=== PATIENT | female | born 1945 | race Caucasian/White ===

== ENCOUNTER 2022-09-13 15:33 | Inpatient (IN) | payer MEDICARE, SELFPAY ==
[2022-08-27 12:21] VITALS: BMI 34.5
--- NOTE | 2022-09-11 23:17 | DI.RAD.S_ITS ---
PROCEDURE: XR KNEE RT 1TO2V INDICATIONS: tka TECHNIQUE: 2 view(s) of the knee acquired. COMPARISON: None. FINDINGS: Bones: Patient is status post knee joint arthroplasty. Hardware components are in expected positions. Visualized bony structures are intact. Soft tissues: Overlying postoperative changes are noted. IMPRESSION: Expected postoperative appearance of a right total knee arthroplasty. Dictated by: Anthony Michaud M.D. on 09/12/2022 at 14:53 Approved by: Anthony Michaud M.D. on 09/12/2022 at 14:53
[2022-09-12] VITALS (21 sets, daily range): BP systolic 121–182; BP diastolic 55–118; PULSE 57–65; RESP 10–20; TEMP 36.5–37.1; O2SAT 90–98; BMI 34.5
[2022-09-12] MEDS: PREGABALIN 75 MG CAPSULE PO (09:49)
[2022-09-12] MEDS: ACETAMINOPHEN 325 MG TABLET 975 MG PO (09:49)
[2022-09-12] MEDS: LACTATED RINGERS 1,000 ML 42 ML IV (09:50)
[2022-09-12] MEDS: CELECOXIB 200 MG CAPSULE PO (09:50)
--- NOTE | 2022-09-12 11:16 | PM.PREOP ---
Pre-operative Note Interval Note History & Physical reviewed/Exam performed by Physician: Yes Changes to H&P: No H&P completed within 30 days and has changed as indicated here:: Patient has a history of a Celestino-en-Y. Will get aspirin for DVT prophylaxis as low risk of bleeding with that then with other options. Will do aspirin 81 mg b.i.d.. We will avoid other anti-inflammatories.
[2022-09-12] MEDS: CEFAZOLIN 2 GM/100 ML PREMIX 100 ML IV ×2 (11:55→20:59)
--- NOTE | 2022-09-12 12:26 | SUR.OPER ---
Supine on padded OR bed. Pillow under head, arms secured on padded armboards <90 degree abduction. Safety belt across torso. Non-operative leg secured with tape over blanket over lower leg. Operative leg secured in DeMayo/Sebastien/Nathe positioner. Foam padded brace at thigh of operative leg.
[2022-09-12] MEDS: BUPIVACAINE LIPOSOME 266 MG/20 ML VIAL INJ ×2 (12:32→14:15)
[2022-09-12] MEDS: BUPIVACAINE 0.25% W/ EPI 30 ML VIAL 60 ML INJ (12:34)
[2022-09-12] MEDS: TRANEXAMIC ACID 1,000 MG VIAL 1000 MG INJ ×2 (12:35→13:57)
--- NOTE | 2022-09-12 14:37 | P.OP_ITS ---
Operative Date/Time/Diagnoses Date of procedure: 09/12/22 Time of procedure: 12:00 Pre-op diagnosis: Right knee arthritis M17.11 BMI 34 Post-op diagnosis: same Procedure & Clinicians Procedure: Total knee arthroplasty, right CPT code 91654 Same procedure as scheduled: Yes Indications: The patient is a 77 year old female with end-stage [id number] knee arthritis. The patient has end-stage, significant varus knee arthritis. They have failed conservative treatment with activity modifications, injections, physical therapy and bracing. They has been indicated for total knee replacement. The risks and benefits of the procedure have been discussed with the patient even opportunity to ask questions. The risks of surgery include but are not limited to infection, malunion, nonunion, fracture, loosening, persistence of pain, damage to nerves and blood vessels, need for additional procedures, DVT, PE, cardiopulmonary complications and . The patient expressed a thorough understanding of the risks and benefits of surgery and has elected to proceed. Consent was signed in the office. During the operation the services of physician surgical elastic knitter were medically indicated and necessary to provide the exposure of the operative site for the surgical procedure and to maintain the limb in a proper position to carry out the procedure safely and efficiently. Without a qualified first assistant manager being present this would extend the operative procedure and would have made the procedure more technically difficult to perform. The surgical elastic knitter was medically necessary for the proper positioning, retraction and manipulation of the limb, proper exposure, and manipulation of the tissue for implantation implants and closure. Surgeon: Aleshia Hargrove Principal Bioinformatics Specialist: Kaya Flynn Anesthesia Type: General and Local Operative Notes Findings: Kellgren Kodi grade 4 varus knee arthritis full-thickness cartilage loss medial and patellofemoral compartments medial and lateral meniscal tearing Closure Type: primary Specimen(s): none sent Prosthetic devices, grafts, tissues, transplants, or devices: Silva and nephew journey 2 BCS total knee arthroplasty Femur cobalt chromium size 4 right Tibia size 3 right Poly 11 mm Patella 35 mm x 7.5, round Estimated Blood Loss (mL): 50 Blood products transfused: none Tourniquet time (min): 90 Procedure in detail: Patient was seen in the preoperative area where the patient and site of surgery were identified in the operative knee was marked informed consent confirmed. This was the right knee. Patient received the appropriate preoperative antibiotics this was 2 g of Ancef. And other preoperative medications and was taken to the operating room placed on operating table in the supine position. general anesthetic was administered. The operative extremity was then prepped and draped in the standard sterile fashion with a nonsterile tourniquet high on the thigh. Patient was placed on the green foam bolsters. A lateral post was placed at the level of the proximal thigh /trochanter area as a lateral post. Formal time-out procedure was performed confirming the patient's side and site of surgery and administration of appropriate preoperative antibiotics and implants were in the room accounted for. All were in agreement. Patient received a preoperative dose of tranexamic acid and then a 2nd dose at tourni quet release Patient was prepped and draped in the standard sterile fashion and the foot was placed into the leg price. This was taken into high flexion and the incision was marked out over the anterior knee to the level of the medial tubercle tubercle. The Esmarch was then used for exsanguination and the tourniquet was inflated to 250 mmHg. Was made through the skin and subcutaneous tissue in high flexion this was then brought down into 30? of flexion for the medial parapatellar arthrotomy. A marker pen was used to west the arthrotomy site for later repair. Joint fluid was evacuated. The anterior osteophytes and soft tissues were removed. Routine medial release was initially made along the medial proximal tibia with Bovie. The patella was on quite a bit of tension on attempted eversion so the quad incision was lengthened to relax it and then the patella was 1st cut using the saw sized and prepped and then subluxed throughout the case and protected. The leg was then taken into extension and the patella was everted and the patella was cut to accommodate the patellar button. This was sized to a 35 mm button for a 7.5 mm thickness to recreate the original dimensions of the patella. Poly was removed and the protector replaced and the patella was subluxed and the knee was taken back up into flexion and attention was returned to the femur. Then the rotational landmarks of Whitesides line and the trans epicondylar axis were marked on the femur with electrocautery. Then the intramedullary guide for the femur was created. The distal femoral cut was made in 6? of valgus using the intramedullary guide with the cut setting on 0+ as the patient did not have a preoperative flexion contracture. The ACL and PCL released. The proximal tibia was then cut using the intramedullary guide, taking 9 mm off the less involved side this was the lateral plateau. The Black wing was used to check the slope through the guide. Second pass was made using the 2 mm resection guide as the 1st cut just barely skimmed through the worn eburnated medial plateau. In extension remainders of the medial and lateral menisci were removed. The extension flexion gaps were then checked using both the flexion extension blocks. And was selected for a 9 mm poly femur was then sized and the rotation set using the posterior condyle referencing 3? of external rotation. This measured a size 4. Cut block was then placed and the anterior, posterior and chamfer cuts were then made. The posterior osteophytes and soft tissues were then removed. Then in extension the posterior capsule was injected with a mixture of 40 mL of 0.25% Marcaine and 20 mL of Exparel care to avoid excessive injection posterior laterally. The remainder of this was saved for the capsule and subcutaneous tissue and placed during cement curing. Attention was then returned to the tibia and this was prepared with the rotation set by the extramedullary guide. Lined up with the tibial crest and the 2nd toe. The tibial trial was sized to a 3 for best fit and then pinned in place and the trial femoral components were placed. Then the intercondylar notch was cut through the femoral trial to create the box this was done with the distal than the proximal drill and then the box cut distally and then proximally. Next the insert was placed and the trial poly placed. This was stable in flexion and extension and there was a 0-135 degree range of motion. The tibia was then finished with the drill and flange cuts and then this was removed. All trials were removed. The wound and bone was irrigated with pulsatile lavage. This was then dried with a sponge. The components were verified and opened and the cement was mixed. Cement was applied to the components and then to the bone then the tibia was cemented in place 1st followed by the femur then the patella. Excess cement was removed. With care looking around the back of the knee. Remainder of the injection was injected around the capsule. trial 10 mm poly was placed back in the leg was placed into extension for the patellar cementing. After this was cured approximately 15 minutes later and the dilute Betadine solution was placed for at least 3 minutes in the wound this was then irrigated out. There is a little bit of hyperextension noted with the 10 mm poly so the 11 trial was placed which demonstrated excellent full range of motion 0-135 degrees and good stability in extension and flexion. And the final poly was placed. This was a 11 mm poly. The tourniquet was released hemostasis was achieved. Final 1g of tranexamic acid was given IV at the time of tourniquet release. The capsule was closed with 1. Ethibond suture. Subcutaneous layer was closed with 3-0 Vicryl suture. Skin was closed with a running V lock suture Stratafix Monocryl type suture and Dermabond. An Aquacel dressing was placed. An Hardeep wrap was applied. Anesthetic was terminated the patient was woken from anesthesia and taken to recovery room in good condition. There no immediate complications from this procedure. The patient will be maintained on a standard total knee replacement protocol with weight-bearing as tolerated. Complications: none Post-operative Condition: stable Disposition: PACU Plan for aftercare: Weightbear as tolerated. Start immediate range of motion. We will do aspirin 81 mg b.i.d. for 6 weeks for DVT prophylaxis. Prescriptions for pain medication oxycodone was previously sent to the patient's pharmacy. Additional prescriptions for anti nausea, aspirin and stool softener prescription sent.
[2022-09-12] MEDS: LABETALOL 20 MG/4 ML SYRINGE 10 MG IV (14:40)
[2022-09-12] MEDS: OXYCODONE IR 5 MG TABLET PO (14:50)
[2022-09-12] MEDS: HYDROMORPHONE 2 MG INJ IV ×3 (14:55→15:09)
[2022-09-12] MEDS: LACTATED RINGERS 1,000 ML 100 ML IV (16:39)
[2022-09-12] MEDS: OXYCODONE IR 10 MG TABLET PO ×3 (18:32→23:55)
[2022-09-12] MEDS: DOCUSATE 100 MG CAPSULE PO (21:00)
[2022-09-12] MEDS: ASPIRIN EC 81 MG TABLET PO (21:00)
[2022-09-12] MEDS: AMIODARONE 200 MG TABLET PO (21:01)
[2022-09-12] MEDS: PANTOPRAZOLE DR 20 MG TABLET PO (21:01)
[2022-09-12] MEDS: METOPROLOL ER 50 MG TABLET PO (21:02)
[2022-09-12] MEDS: ACETAMINOPHEN 325 MG TABLET 650 MG PO (21:09)
[2022-09-12] MEDS: hydrOXYzine pamoate 25 MG CAPSULE PO (21:17)
[2022-09-13] VITALS (7 sets, daily range): BP systolic 101–139; BP diastolic 54–62; PULSE 63–87; RESP 16–20; TEMP 36.1–36.6; O2SAT 91–97
[2022-09-13] MEDS: CEFAZOLIN 2 GM/100 ML PREMIX 100 ML IV (03:04)
[2022-09-13] MEDS: hydrOXYzine pamoate 25 MG CAPSULE PO ×2 (03:04→23:15)
[2022-09-13] MEDS: OXYCODONE IR 10 MG TABLET PO ×5 (03:04→23:15)
[2022-09-13] MEDS: ACETAMINOPHEN 325 MG TABLET 650 MG PO ×4 (03:05→23:16)
[2022-09-13] MEDS: HYDROMORPHONE 0.5 MG INJ IV ×4 (04:18→21:45)
[2022-09-13] MEDS: ONDANSETRON 4 MG/2 ML INJ IV (04:25)
[2022-09-13 05:20] LABS: Hematocrit 31.8 % (36-46); Hemoglobin 10.6 g/dL (12.0-16.0)
[2022-09-13] MEDS: PANTOPRAZOLE DR 20 MG TABLET PO ×2 (10:00→20:23)
[2022-09-13] MEDS: ASPIRIN EC 81 MG TABLET PO ×2 (10:00→20:23)
[2022-09-13] MEDS: DOCUSATE 100 MG CAPSULE PO ×2 (10:00→20:24)
--- NOTE | 2022-09-13 10:16 | P.PN_ITS ---
Subjective Subjective Interval history: Postop day 1 right total knee arthroplasty. Doing pretty well lying in bed. States she is okay at rest but has increased pain with movement. She has been able to get up and go to the restroom by herself. Has friends available to come pick her up and take her home. No fevers chills nausea or vomiting Notes that [facility] appears to be refusing to fill her oxycodone. She did get a hydrocodone prescription from her primary care before surgery which may have been the issue. Her postoperative prescriptions are marked postop except because she is now a postoperative patient. However may be difficult for her to get this filled if it has not insert pass the time required from her previous prescription. We will resubmit to another pharmacy at the patient's request. If she is unable to fill it for a few days due to the hydrocodone prescription she may take 2 hydrocodone until she can get the oxycodone but was reminded that total daily Tylenol intake should not be more than 3000 mg Exam Vital Signs (past 8 hours): - 09/13/22 07:32 09/13/22 07:00 Temperature 98 F Pulse Rate 68 Respiratory Rate 18 Blood Pressure 130/62 Pulse Oximetry 97 Oxygen Delivery Method Room Air Oxygen Flow Rate 2 Oxygen Delivery Method Room Air Oxygen Flow Rate 2 Narrative Exam Narrative: Alert oriented female in no acute distress lying in bed. Heart regular rate and rhythm Lungs clear breathing unlabored Right lower extremity Hardeep wrap was then removed Aquacel is in place and clean. Thigh and lower extremity compartments soft. Demonstrates ankle dorsiflexion plantar flexion wiggles her toes. Palpable pulses. There is minimal knee flexion and extension while lying in bed today. 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 Mild postoperative anemia, asymptomatic Vital signs normal. Postoperative plan: routine post-op care Postoperative plan narrative: Routine total knee postoperative care weightbear as tolerated. Work on range of motion. Work on physical therapy and discharge this afternoon after physical therapy Time Spent With Patient Time with patient: less than 15 minutes Quality VTE Deep Vein Thrombosis/Pulmonary Embolism Present on Admission: No
--- NOTE | 2022-09-13 10:25 | PT.IIE ---
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) History of surgical procedure (07/2016) Hx of laminectomy (1979) Hx of repair of right rotator cuff (2006) Medical History (Last Reviewed 09/13/22 @ 10:19 by Aleshia Hargrove MD) Edema HTN (hypertension) PAF (paroxysmal atrial fibrillation) (~2008) Sepsis (11/30/16) TIA (transient ischemic attack) (03/04/15) Upper GI bleed (02/25/14) Physical Therapy Inpatient Evaluation/Re-Eval M1 PT/OT-IP Prior Functional Status Start: 09/13/22 12:36 Freq: NEEDED Status: Active Protocol: Document 09/13/22 10:25 AB (Rec: 09/13/22 13:02 AB [email or web address]) Medical Review Prior Functional Status Medical History Reviewed Yes Communication able to make needs known Mobility and Gait pt stated that she is independent with all mobilities and ambulation without AD Social History Household Members other Living Arrangements House Number of Floors (Floors) One Floor Number of Stairs To Enter/Railing? 2 steps B rails to enter the house Home Environment Standard Height Toilet,Tub/ Shower Home Equipment Four Wheel Walker,Hand Held Shower,Hospital Bed,Grab Bars Near Toilet,Grab Bars In Shower Additional Social History Comment pt stated that there is a young male that lives with her and may be able to assist her but he works; may have friends that can come in to assist her if needed but no consistent person that can stay and assist her at home pt stated that she will not go on showers for now but will do bed baths pt stated that she rented a hospital bed with B rails M2 PT-IP Current Condition Start: 09/13/22 12:36 Freq: NEEDED Status: Active Protocol: Document 09/13/22 10:25 AB (Rec: 09/13/22 13:02 AB [email or web address]) Physical Therapy Current Condition Current Condition Evaluation Date 09/13/22 Treatment Diagnosis s/p R TKA; difficulty in walking Onset Date 09/12/22 M3 PT-IP Subjective Start: 09/13/22 12:36 Freq: NEEDED Status: Active Protocol: Document 09/13/22 10:25 AB (Rec: 09/13/22 13:02 [email or web address]) Subjective Physical Therapy Visit Type Type Initial Evaluation Visit Start Time 10:25 Visit Stop Time 11:20 Total Visit Minutes 55 Number of SEWING MACHINE MAINTENANCE MECHANIC Visits 0 Physical Therapy Visit Comments Patient Comments agreeable to do PT Therapy Pain Assessment Pain When Pain Assessed At Rest Pain Present Pain Present Pain Reported Location right knee Intensity 2 Scale Used increases to 9/10 with mobility Pain Behaviors Facial Grimacing,Guarding, Holding Area,Wincing Pain Management Techniques Distraction,Modification of Treatment,Re-positioning, Timing of Activity with Medications M4 PT-IP Mobility and Gait Start: 09/13/22 12:36 Freq: NEEDED Status: Active Protocol: Document 09/13/22 10:25 AB (Rec: 09/13/22 13:02 [email or web address]) PT-Bed Mobility Assessment Supine to Sit Supine to Sit Standby Assistance PT-Transfer Assessment Sit to and From Stand Sit to and from Stand Minimal Assistance,1 Person Assistance,Use of Upper Extremities Equipment Transfer Assistive Device Gait Belt,Front Wheeled Walker Orthotic/Prosthetic Devices or Brace: No Transfers Transfer Destination Bedside Commode Transfer Technique Stand Step Pivot Transfer Ability Level of Assist Moderate Assistance,Maximum Assistance,1 Person Assistance ,Use of Upper Extremities Comments Mobility Comments pt agreed to do PT. PROM on RLE limited with c/o increase pain and increase guarding. BP: 102/75 completed supine to sit HOB elevated ~ 45 deg SBA. able to sit on EOB SBA. c/o increase pain. completed sit to stand min A and cues and ambulated in room but only tolerated ~ 3 ft using FWW and has to sit down. continues to have increase R knee pain to 9/10. presents with dragging gait and (+) R knee buckling with ambulation. pt agreed to sit on the chair. requested to use the toilet. completed sit to stand from the chair min A and step transfer to the bedside commode using FWW mod to max A and max cues. required assist with brief management. Left pt with nurse to assist. informed pt regarding current mobility and safe d/c plan but pt refuses to go to SNF. 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 Gait Assessment Gait Gait Assistance Required: Moderate Assistance,Maximum Assistance Distance (Feet) 3 Able to Maintain Weight Bearing Status Yes During Gait Assistive Devices Assistive Device Gait Belt,Front Wheeled Walker Orthotic/Prosthetic Devices or Brace: No Gait Deviations General Gait Pattern Antalgic,Decreased Stride Length,Decreased Feet Clearance,Step-to Gait Factors Limiting Gait Function Factors Limiting Gait Function Decreased Activity Tolerance, Decreased Strength,Difficulty Following Directions,Limited Range of Motion,Pain,Poor Balance,Poor Safety Awareness PT-Balance Assessment Sitting Balance and Reactions Static Sitting Balance Ability Good Dynamic Sitting Balance Ability Good Standing Balance and Reactions Static Standing Balance Ability Fair Dynamic Standing Balance Ability Poor Device Used FWW M5 PT-IP Objective Assessments Start: 09/13/22 12:36 Freq: NEEDED Status: Active Protocol: Document 09/13/22 10:25 AB (Rec: 09/13/22 13:02 AB [email or web address]) Orientation Orientation/Cognition Level of Alertness Alert Orientation Name,Place,Situation Language Function Ability No Deficits Noted Safety Awareness Decreased Safety Awareness Memory Description Short Term Impaired Gross Range of Motion Lower Extremity ROM Assessment Right Impaired Impairments R knee flexion: ~ 30 deg PROM R knee extension: ~ 15 deg less to 0 c/o increase pain with movement Strength Lower Extremity Strength Assessment Right Impaired Hip 3+/5 Knee 3+/5 Muscle Tone Muscle Tone WNL Yes M6 PT-IP Treatment Start: 09/13/22 12:36 Freq: NEEDED Status: Active Protocol: Document 09/13/22 10:25 AB (Rec: 09/13/22 13:02 AB [email or web address]) Physical Therapy Treatment Education Education Provided Precautions,Weight Bearing Status,Post-Op Packet,Safety M7 PT-IP Assessment and Plan Start: 09/13/22 12:36 Freq: NEEDED Status: Active Protocol: Document 09/13/22 10:25 AB (Rec: 09/13/22 13:02 AB [email or web address]) PT Summary Assessment and Plan Potential Rehabilitation Potential Fair Status of Condition at Evaluation Evolving Summary Impairments Pain,ROM,Strength,Balance, Coordination,Sensation,Tone, Cognition,Bed Mobility, Transfers,Gait,Activity Tolerance Assessment Summary pt/ s/p R TKA POD1. pt with c /o increase R knee pain affecting mobility. pt currently requiring min A for sit to stand and mod to max A for transfers and ambulation using FWW and only tolerated ~ 3ft of walking. c/o 9/10 pain with mobility. pt is not safe to d/c home today and may require SNF rehab depending on progress. pt will not have consistent assistance available to her at home and will need 24/7 assist at this time. will continue to assess . Goals Bed Mobility Goal Standby Assistance Transfer Goal Standby Assistance,Front Wheeled Walker Gait Goal Standby Assistance,Front Wheel Walker Gait Distance 150 Other Goals up/down 2 steps B rails SBA Days to Meet Goals 10 Frequency of Treatment Frequency Of Treatment Twice a Day Treatment Plan Physical Therapy Treatment Plan Bed Mobility Training,Transfer Training,Gait Training, Therapeutic Exercise,Balance Retraining,Post Op Education, Discharge Planning,Hot or Cold Pack,Neuromuscular Re-ed, Coordination Retraining,Manual Therapy Weight Bearing Status Weight Bearing Status Weight Bear as Tolerated Allowed Weight Bearing Amount (enter % RLE WBAT or #) (%) Recommendations To Nursing Amount of Assist Needed 1 Person Assist Discharge Recommendations Equipment Needed for Home Before FWW Discharge Transportation Needs at Discharge Private Vehicle,Wheelchair/ Cabulance
--- NOTE | 2022-09-13 11:02 | CM.DANOTE ---
Addendum entered by Praveena Sewell R.N. 09/13/22 12:02: CM team alerted by OT that patient cannot walk more than 3 ft and will need a FWW to progress to her goal of home with assistance of friends. Met with patient again to offer SNF and HH list. Patient continues to insist that she could go back to her home with Brady (tenant) helping. When asked how she would be getting in and out of a car to go home, she became more upset. Patient may be gaining some insight into current physical challenges. She believes she will be better tomorrow. DCP Plan A home with personal pateint goal met. Plan B SNF/v HH PT and new FWW. Original Note: Reviewed chart with existing information, and patient discussed in multidisciplinary rounds this morning. Met with patient and introduced to care coordination and discharge planning. They agree to assessment. Pt is a 77 year old admitted for planned right TKA. Plan for PT OT evals today. DCP is for home with home health, patient rejects the idea of going to a SNF for rehab. States her ?young man that lives with her in basement suite? can be assistance to her. She states that friend Jeff will ice cream truck driver back to her home in [place]. PCP: Dae Trujillo seen 2 weeks ago as prep for surgery DME: 4WW at bedside Payer: Medicare/[employer] Barriers: States she had ?the worst night of my life? and concerned about getting OOB to chair. States ?I was water skiing last year and want to get back to that?. Obese, deconditioned, and may need more support at home than what she currently recognizes. PT pending. Praveena Sewell RN, CM Discharge Planning/Care Management CM Discharge Assessment Start: 09/12/22 11:58 Freq: Status: Active Protocol: Document 09/13/22 10:58 GUS (Rec: 09/13/22 11:02 BQ [id number]) Discharge Planning Assessment Assigned Laser Cutter Praveena Sewell RN, CM DPOA/Assigned Designee Name None Advance Directives? No Advance Directives on File No History Provided By Patient,Medical Record Has Patient been admitted in last 30 No days? Prior Living Arrangements House Household Members other Comment States a young man Type of transporation used prior to Drives own vehicle admit Independent with ADL's Yes Is patient alert and oriented? Yes Needs Assistance With Home Chores / Shopping Caregiver for Another No Patient/Family Preference Home with Home Health Barriers to Discharge Yes Comment See note Discharge Plan Home with Home Health Referrals Initiated Other Additional Comment Pending PT eval Medicare Choice List Provided Yes Medicare choice list reviewed on patient electronic tablet with SNF/HH Preference No specific choice yet. Whiteboard Updated in Patient Room with Yes name and ext. # of Laser Cutter Review Status In Process Next Review Type Continued Stay Review Pre-Anesthesia Assessment Start: 08/27/22 12:21 Freq: Status: Complete Protocol: Document 08/27/22 12:21 CAB (Rec: 08/27/22 13:34 CAB [id number]) Pre-Anesthesia Assessment Preferred Name Taniya Patient Information Reviewed Via Phone Assessment Assessment Completed With Patient Diagnostic Results BMP/CMP,CBC,EKG Comment Outside labs/EKG scanned Primary Care Provider Dae Trujillo Comment PCP pre-op clearance 07/29/22 scanned to record Seen Specialist in Last 12 Months Yes Specialist Seen Orthopedist Primary Language Brazilian Record Label Intern Required No Height 160.02 cm Weight 88.451 kg Body Mass Index (BMI) 34.5 Hearing Ability Normal Visual Assist Glasses Dentition Type Full- Upper & Lower Barriers to Learning None Hx Anesthesia Reactions No Hx Family Anesthesia Reaction No Hx Malignant Hyperthermia No Hx Blood Transfusions No Anesthesia Review Requested No Continuous Drier Operator No alcohol intake former Alcohol Intake Frequency Other: Quit 1970 Smoking Status Former smoker how long ago did patient quit smoking Quit approx 10 years ago Substance Use Type does not use Pain Present Pain Reported Musculoskeletal Symptoms Abnormal Gait,Difficulty Walking,Joint Pain,Muscle Cramps,Muscle Weakness History of Falling (Recent or History of Yes ) Patient is completely paralyzed or No completely immobile Mental Status Oriented to own ability Is patient on oxygen? No Does patient have ROSALES/SOB Yes: Pt feels r/t deconditioning Hx Sleep Apnea No Currently Taking a Beta Jena Yes: Metoprolol Can You Climb a Flight of Stairs Without No SOB Hx Chest Pain No Hx SOB Yes: Pt feels r/t deconditioning Hx Syncope or Dizziness No Anti-Coagulant Therapy No Has a Manufacturing Engineer Chief No Cardiac Testing No Hx Pacemaker/ICD No Pacemaker Rep Required? No Cardiac Clearance Received Not Applicable Diet Type At Home Regular Dysphagia No Gastrointestinal Symptoms None Chronic UTI No Bladder Pattern Frequency,Incontinent, Stress Urinary Catheter Present No Hx Urinary Self Catheterization No Diabetes No HgbA1C 5.2 Date 07/26/22 Patient No Lactating No Hx Drug Resistant Organism No Presence of External or Internal Medical Yes: Lumbar fusion Devices Received a COVID vaccine? Yes Received all doses? No Marital Status Lives With other Current Living Arrangements House Comment Has a renter who lives downstairs Number of Floors (Floors) Two Floors Support System Child/Children Does the Patient Have Assistance After Yes Surgery Patient Discharge Plan Description Return Home Comment Pt not advised on length of stay per surgeon Feels Safe in Current Environment Yes Been Physically Hurt or Threatened By a No Person in Current Environment Do you have thoughts of harming yourself None or others? Are you currently considering suicide? No Do you have a plan to hurt yourself or No Plan others? Do You Have Any Spiritual Beliefs That No May Affect Your HC Choices? Do You Have Any Cultural Practices That No May Affect Your HC Choices? Comment Restorationist Who Can We Speak to About Patient's Care Family, friends Identifying Code for Release of Patient Declines to issue Information Health Care Proxy/Next of Kin Janis Stuart (friend) Health Care Proxy Emergency Contact Name Maxx (son) Emergency Contact Advance Directives? No Power of Electrical Prospecting Observer No PAC Instructions Do not shave/clip surgical site,Durable medical equipment ,Medications to take/avoid, Nasal antibiotic,No ETOH/ petroleum product on skin DOS, NPO,Pre-surgical wash,Sensory aids,Sturdy shoes/comfortable clothes,Do not bring valuables and remove jewelry
--- NOTE | 2022-09-13 15:41 | PT.IPTN ---
Current Diagnoses Unilateral primary osteoarthritis, right knee (09/12/22) Surgery Performed Operation Date: 09/12/22 11:30 Actual Procedures p Total Knee Arthroplasty(Right) - Aleshia Hargrove MD Physical Therapy Treatment Note M2 PT-IP Current Condition Start: 09/13/22 12:36 Freq: NEEDED Status: Active Protocol: Document 09/13/22 10:25 AB (Rec: 09/13/22 13:02 AB [id number]) Physical Therapy Current Condition Current Condition Evaluation Date 09/13/22 Treatment Diagnosis s/p R TKA; difficulty in walking Onset Date 09/12/22 M3 PT-IP Subjective Start: 09/13/22 12:36 Freq: NEEDED Status: Active Protocol: Document 09/13/22 16:10 TS (Rec: 09/13/22 16:44 TS [id number]) Subjective Physical Therapy Visit Type Type Treatment Note Visit Start Time 15:41 Visit Stop Time 16:08 Total Visit Minutes 27 Number of DEHAIRING MACHINE TENDER Visits 1 Physical Therapy Visit Comments Patient Comments Pt requesting to use commode, agreeable to PT. Therapy Pain Assessment Pain When Pain Assessed At Rest Pain Present Pain Present Pain Reported M4 PT-IP Mobility and Gait Start: 09/13/22 12:36 Freq: NEEDED Status: Active Protocol: Document 09/13/22 16:10 TS (Rec: 09/13/22 16:44 TS [id number]) PT-Bed Mobility Assessment Supine to Sit Supine to Sit Standby Assistance Sit to Supine Sit to Supine Standby Assistance Scooting Scooting to Edge of Bed Contact Guard Assistance Scooting Up and Down in Bed Standby Assistance PT-Transfer Assessment Sit to and From Stand Sit to and from Stand Minimal Assistance,1 Person Assistance,Use of Upper Extremities Equipment Transfer Assistive Device Gait Belt,Front Wheeled Walker Orthotic/Prosthetic Devices or Brace: No Transfers Transfer Destination Bedside Commode Transfer Technique Stand Step Pivot Transfer Ability Level of Assist Minimal Assistance,1 Person Assistance,Use of Upper Extremities Comments Mobility Comments Supine to sit HOB elevated SBA with BUE support for uprighting trunk and LEs over EOB. Sit to stand with FWW Merry with BUE support on FWW to come into standing. Stand pivot transfer to chair Merry for posterior leaning, provided cues for upright posture. Stand to sit in chair Merry, provided cues for reaching back for arms of commode and RLE extended. Sit to stand from commode Merry with FWW and BUE support. She ambulated ~5' Merry with slow step to gait, some buckling when stepping with L knee, pt became fatigued and requested back to bed. Sit to supine SBA with BUE support, no LE assistance into bed. Pt was left in bed with call light nearby, all needs met. Gait Assessment Gait Gait Assistance Required: Minimum Assistance,1 Person Assist Distance (Feet) 5 Able to Maintain Weight Bearing Status Yes During Gait Assistive Devices Assistive Device Gait Belt,Front Wheeled Walker Orthotic/Prosthetic Devices or Brace: No Gait Deviations General Gait Pattern Antalgic,Decreased Stride Length,Decreased Feet Clearance,Step-to Gait Factors Limiting Gait Function Factors Limiting Gait Function Decreased Activity Tolerance, Decreased Strength,Difficulty Following Directions,Limited Range of Motion,Pain,Poor Balance,Poor Safety Awareness Comments Gait Comments See mobility comments. PT-Balance Assessment Sitting Balance and Reactions Static Sitting Balance Ability Good Dynamic Sitting Balance Ability Good Standing Balance and Reactions Static Standing Balance Ability Fair Dynamic Standing Balance Ability Poor Device Used FWW M5 PT-IP Objective Assessments Start: 09/13/22 12:36 Freq: NEEDED Status: Active Protocol: Document 09/13/22 10:25 AB (Rec: 09/13/22 13:02 AB [id number]) Orientation Orientation/Cognition Level of Alertness Alert Orientation Name,Place,Situation Language Function Ability No Deficits Noted Safety Awareness Decreased Safety Awareness Memory Description Short Term Impaired Gross Range of Motion Lower Extremity ROM Assessment Right Impaired Impairments R knee flexion: ~ 30 deg PROM R knee extension: ~ 15 deg less to 0 c/o increase pain with movement Strength Lower Extremity Strength Assessment Right Impaired Hip 3+/5 Knee 3+/5 Muscle Tone Muscle Tone WNL Yes M6 PT-IP Treatment Start: 09/13/22 12:36 Freq: NEEDED Status: Active Protocol: Document 09/13/22 16:10 TS (Rec: 09/13/22 16:44 TS [id number]) Physical Therapy Treatment Education Education Provided Precautions,Weight Bearing Status,Post-Op Packet,Safety M7 PT-IP Assessment and Plan Start: 09/13/22 12:36 Freq: NEEDED Status: Active Protocol: Document 09/13/22 16:10 TS (Rec: 09/13/22 16:44 TS [id number]) PT Summary Assessment and Plan Potential Rehabilitation Potential Fair Summary Impairments Pain,ROM,Strength,Balance, Coordination,Sensation,Tone, Cognition,Bed Mobility, Transfers,Gait,Activity Tolerance Progress Towards Goals Slow Progress due to Pain,Slow Progress due to Activity Tolerance Assessment Summary Pt is SBA for most bed mobility, she did require CGA for scooting to EOB. She performed sit to stands Merry from bed and commode. She required Merry for stand pivot transfer to commode for posterior leaning. She continues to fatigue quickly with gait and requires Merry for poor balance and strength. She has some buckling of knees when stepping with LLE due to increased weight bearing on R side. PT is recommending Home 24/7 vs SNF at this time due to poor activity tolerance and limitations in gait. Goals Bed Mobility Goal Standby Assistance Transfer Goal Standby Assistance,Front Wheeled Walker Gait Goal Standby Assistance,Front Wheel Walker Gait Distance 150 Other Goals up/down 2 steps B rails SBA Days to Meet Goals 10 Frequency of Treatment Frequency Of Treatment Twice a Day Treatment Plan Physical Therapy Treatment Plan Bed Mobility Training,Transfer Training,Gait Training, Therapeutic Exercise,Balance Retraining,Post Op Education, Discharge Planning,Hot or Cold Pack,Neuromuscular Re-ed, Coordination Retraining,Manual Therapy Weight Bearing Status Weight Bearing Status Weight Bear as Tolerated Allowed Weight Bearing Amount (enter % RLE WBAT or #) (%) Recommendations To Nursing Amount of Assist Needed 1 Person Assist Discharge Recommendations PT Discharge Recommendations Home with / Assist Available,Home vs SNF Equipment Needed for Home Before FWW Discharge Transportation Needs at Discharge Private Vehicle,Wheelchair/ Cabulance
--- NOTE | 2022-09-13 20:17 | DI.RAD.S_ITS ---
PROCEDURE: XR CHEST 1V INDICATIONS: decreased O2 TECHNIQUE: One view of the chest was acquired. COMPARISON: None. FINDINGS: Surgical changes and devices: None. Lungs and pleura: Lungs are clear. No pleural effusions or pneumothorax. Mediastinum: Mediastinal contours appear normal. Heart size is normal. Bones and chest wall: No suspicious bony lesions. Overlying soft tissues appear unremarkable. IMPRESSION: Normal for age, source of current reduced oxygenation symptoms is not seen. Dictated by: Amish Manning M.D. on 09/13/2022 at 21:11 Approved by: Amish Manning M.D. on 09/13/2022 at 21:11
[2022-09-13] MEDS: METOPROLOL ER 50 MG TABLET PO (20:23)
[2022-09-13] MEDS: AMIODARONE 200 MG TABLET PO (20:24)
[2022-09-14] VITALS (8 sets, daily range): BP systolic 87–156; BP diastolic 44–76; PULSE 72–89; RESP 17–19; TEMP 36.4–37.2; O2SAT 93–97
[2022-09-14] MEDS: OXYCODONE IR 10 MG TABLET PO ×4 (02:15→20:29)
[2022-09-14] MEDS: ACETAMINOPHEN 325 MG TABLET 650 MG PO ×3 (03:42→21:20)
[2022-09-14] MEDS: DOCUSATE 100 MG CAPSULE PO ×2 (09:36→20:34)
[2022-09-14] MEDS: ASPIRIN EC 81 MG TABLET PO ×2 (09:36→20:34)
[2022-09-14] MEDS: PANTOPRAZOLE DR 20 MG TABLET PO ×2 (09:37→20:34)
--- NOTE | 2022-09-14 10:40 | PT.IPTN ---
Current Diagnoses Unilateral primary osteoarthritis, right knee (09/12/22) Surgery Performed Operation Date: 09/12/22 11:30 Actual Procedures p Total Knee Arthroplasty(Right) - Aleshia Hargrove MD Physical Therapy Treatment Note M2 PT-IP Current Condition Start: 09/13/22 12:36 Freq: NEEDED Status: Active Protocol: Document 09/13/22 10:25 AB (Rec: 09/13/22 13:02 AB [id number]) Physical Therapy Current Condition Current Condition Evaluation Date 09/13/22 Treatment Diagnosis s/p R TKA; difficulty in walking Onset Date 09/12/22 M3 PT-IP Subjective Start: 09/13/22 12:36 Freq: NEEDED Status: Active Protocol: Document 09/14/22 11:12 TS (Rec: 09/14/22 11:33 TS [id number]) Subjective Physical Therapy Visit Type Type Treatment Note Visit Start Time 10:40 Visit Stop Time 11:10 Total Visit Minutes 30 Number of SENIOR CORPORATE RECRUITER Visits 2 Physical Therapy Visit Comments Patient Comments Pt found resting in chair, agreeable to PT. Therapy Pain Assessment Pain When Pain Assessed During Mobility Pain Present Pain Present Pain Reported M4 PT-IP Mobility and Gait Start: 09/13/22 12:36 Freq: NEEDED Status: Active Protocol: Document 09/14/22 11:12 TS (Rec: 09/14/22 11:33 TS [id number]) PT-Bed Mobility Assessment Sit to Supine Sit to Supine Standby Assistance Scooting Scooting Up and Down in Bed Standby Assistance PT-Transfer Assessment Sit to and From Stand Sit to and from Stand Contact Guard Assistance,1 Person Assistance,Use of Upper Extremities Equipment Transfer Assistive Device Gait Belt,Front Wheeled Walker Orthotic/Prosthetic Devices or Brace: No Comments Mobility Comments BP taken in sitting 87/44 on L arm and Spo2 93% on RA prior to mobility. Sit to stand from chair CGA with FWW, pt demonstrates good carryover of BUE support on arms of chair and RLE extended, pt denied any dizziness. She ambulated ~ 60' SBA with slow step to antalgic gait with FWW, slightly on unsteady and poor lift of feet with gait, continues to deny any dizziness. Sit to supine SBA with BUE support into bed. Spo2 after mobility 93% on RA, call light placed within reach, RN notified. Gait Assessment Gait Gait Assistance Required: Standby Assistance,1 Person Assist Distance (Feet) 60 Able to Maintain Weight Bearing Status Yes During Gait Assistive Devices Assistive Device Gait Belt,Front Wheeled Walker Orthotic/Prosthetic Devices or Brace: No Gait Deviations General Gait Pattern Antalgic,Decreased Stride Length,Decreased Feet Clearance,Step-to Gait Factors Limiting Gait Function Factors Limiting Gait Function Decreased Activity Tolerance, Decreased Strength,Difficulty Following Directions,Limited Range of Motion,Pain,Poor Balance,Poor Safety Awareness Comments Gait Comments See mobility comments. Stair Climbing Assessment Comments Stair Climbing Comments Did not attempt this session. Will need to attempt this afternoon before possible d/c. PT-Balance Assessment Sitting Balance and Reactions Static Sitting Balance Ability Good Dynamic Sitting Balance Ability Good Standing Balance and Reactions Static Standing Balance Ability Fair Dynamic Standing Balance Ability Poor Device Used FWW M5 PT-IP Objective Assessments Start: 09/13/22 12:36 Freq: NEEDED Status: Active Protocol: Document 09/13/22 10:25 AB (Rec: 09/13/22 13:02 AB [id number]) Orientation Orientation/Cognition Level of Alertness Alert Orientation Name,Place,Situation Language Function Ability No Deficits Noted Safety Awareness Decreased Safety Awareness Memory Description Short Term Impaired Gross Range of Motion Lower Extremity ROM Assessment Right Impaired Impairments R knee flexion: ~ 30 deg PROM R knee extension: ~ 15 deg less to 0 c/o increase pain with movement Strength Lower Extremity Strength Assessment Right Impaired Hip 3+/5 Knee 3+/5 Muscle Tone Muscle Tone WNL Yes M6 PT-IP Treatment Start: 09/13/22 12:36 Freq: NEEDED Status: Active Protocol: Document 09/14/22 11:12 TS (Rec: 09/14/22 11:33 TS [id number]) Physical Therapy Treatment Education Education Provided Precautions,Weight Bearing Status,Post-Op Packet,Safety M7 PT-IP Assessment and Plan Start: 09/13/22 12:36 Freq: NEEDED Status: Active Protocol: Document 09/14/22 11:12 TS (Rec: 09/14/22 11:33 TS [id number]) PT Summary Assessment and Plan Potential Rehabilitation Potential Good Summary Impairments Pain,ROM,Strength,Balance, Coordination,Sensation,Tone, Cognition,Bed Mobility, Transfers,Gait,Activity Tolerance Progress Towards Goals Progressing Toward Goals Assessment Summary Pt made some progress with gait this session progressing to ~60' SBA with FWW. She has a slow antalgic gait with minimal lift of feet and is unsteady with FWW, remains a falls risks. She was CGA for sit to stand with FWW from chair, she demonstrates good carryover of her precautions and sequencing of sit to stands. Her BP is low 87/44 prior to mobility, she denied any dizziness this morning and Spo2 was 93% on RA. PT at this time is recommending SNF vs Home 24/7 assist available and HHPT due to being a falls risk. Pt would benefit from continued skilled therapy prior to d/c home but pt is adamant about not going to rehab. Pt does not have 24/7 assist available at home, she has a roommate who is there during the day and is unclear on how much help her roommate will be available to provide. PT would like to see her attempt stairs x2 prior to d/c . Pt would like to stay one more night before going home. She will need a FWW if d/c home. Goals Bed Mobility Goal Standby Assistance Transfer Goal Standby Assistance,Front Wheeled Walker Gait Goal Standby Assistance,Front Wheel Walker Gait Distance 150 Other Goals up/down 2 steps B rails SBA Days to Meet Goals 10 Frequency of Treatment Frequency Of Treatment Twice a Day Treatment Plan Physical Therapy Treatment Plan Bed Mobility Training,Transfer Training,Gait Training, Therapeutic Exercise,Balance Retraining,Post Op Education, Discharge Planning,Hot or Cold Pack,Neuromuscular Re-ed, Coordination Retraining,Manual Therapy Weight Bearing Status Weight Bearing Status Weight Bear as Tolerated Allowed Weight Bearing Amount (enter % RLE WBAT or #) (%) Recommendations To Nursing Amount of Assist Needed 1 Person Assist Discharge Recommendations PT Discharge Recommendations Home with 24/7 Assist Available,Home vs SNF Equipment Needed for Home Before FWW Discharge Transportation Needs at Discharge Private Vehicle,Wheelchair/ Cabulance
--- NOTE | 2022-09-14 12:00 | CM.DPC ---
Met with patient after her PT today. She states Dr. Tyler was just in and said she could stay another day. Patient confirms that Jeff will be cdl company flatbed driver home for tomorrow and that she has organized 24/ help with her tenant and friends at home in [place]. She reminds CM team that she will need a new FWW. Orders from Dr. Tyler in place for new FWW. CM team will relay to Minh of PT.
--- NOTE | 2022-09-14 14:38 | PM.PNPO.1 ---
Subjective Subjective Date Patient Seen: 09/14/22 Time Patient Seen: 14:38 Interval history: Postop day 2 right total knee arthroplasty. Feeling much better today than yesterday. Pain better controlled. Worked with physical therapy this morning and ambulated father. States it was felt there was a few other things to work on but should be ready for home tomorrow with assist. Exam Vital Signs (past 8 hours): - 09/14/22 08:32 Temperature 98 F Pulse Rate 89 Respiratory Rate 17 Blood Pressure 110/72 Pulse Oximetry 94 Oxygen Flow Rate 3 Oxygen Delivery Method Nasal Cannula Oxygen Flow Rate 3 Narrative Exam Narrative: Alert oriented no acute distress. Unlabored breathing on room air. Heart regular rate and rhythm Right lower extremity with Aquacel in place. Dressing is clean and dry. No erythema. Thigh and calf are soft. Demonstrates dorsiflexion plantar flexion. Moving better than yesterday. 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 Had marginal pain control yesterday and difficulty working with therapy that required extra days stay. She did make good progress today and is working on mobilizing 24 hour assistance at home. Plan discharge home tomorrow. Weightbear as tolerated ambulating with walker. Aspirin for DVT prophylaxis. May shower. No soaking of bandage. Continue to work diligently on range of motion. Follow-up in [facility] in 2 weeks. Postoperative plan: routine post-op care Time Spent With Patient Time with patient: less than 15 minutes Quality VTE Deep Vein Thrombosis/Pulmonary Embolism Present on Admission: No
--- NOTE | 2022-09-14 15:30 | PT.IPTN ---
Current Diagnoses Unilateral primary osteoarthritis, right knee (09/12/22) Surgery Performed Operation Date: 09/12/22 11:30 Actual Procedures p Total Knee Arthroplasty(Right) - Aleshia Hargrove MD Physical Therapy Treatment Note M2 PT-IP Current Condition Start: 09/13/22 12:36 Freq: NEEDED Status: Active Protocol: Document 09/13/22 10:25 AB (Rec: 09/13/22 13:02 AB [id number]) Physical Therapy Current Condition Current Condition Evaluation Date 09/13/22 Treatment Diagnosis s/p R TKA; difficulty in walking Onset Date 09/12/22 M3 PT-IP Subjective Start: 09/13/22 12:36 Freq: NEEDED Status: Active Protocol: Document 09/14/22 15:51 TS (Rec: 09/14/22 16:04 TS [id number]) Subjective Physical Therapy Visit Type Type Treatment Note Visit Start Time 15:30 Visit Stop Time 15:51 Total Visit Minutes 21 Number of COMPARATIVE SOCIOLOGY PROFESSOR Visits 3 Physical Therapy Visit Comments Patient Comments Pt found resting in bed, reports pain has increased and think she may have walked too far earlier this morning, requesting to use commode, agreeable to PT. Therapy Pain Assessment Pain When Pain Assessed During Mobility Pain Present Pain Present Pain Reported M4 PT-IP Mobility and Gait Start: 09/13/22 12:36 Freq: NEEDED Status: Active Protocol: Document 09/14/22 15:51 TS (Rec: 09/14/22 16:04 TS [id number]) PT-Bed Mobility Assessment Supine to Sit Supine to Sit Standby Assistance Sit to Supine Sit to Supine Standby Assistance Scooting Scooting to Edge of Bed Moderate Assistance Scooting Up and Down in Bed Standby Assistance PT-Transfer Assessment Sit to and From Stand Sit to and from Stand Standby Assistance,1 Person Assistance,Use of Upper Extremities Equipment Transfer Assistive Device Gait Belt,Front Wheeled Walker Orthotic/Prosthetic Devices or Brace: No Transfers Transfer Destination Bedside Commode Transfer Technique Stand Pivot Transfer Ability Level of Assist Standby Assistance,1 Person Assistance,Use of Upper Extremities Comments Mobility Comments Supine to sit SBA with HOB elevated 25D with BUE support for uprighting trunk. Pt required ModA scooting to EOB for transfer to commode. Sit to stand SBA with FWW, demonstrates good carryover of sequencing. Stand pivot transfer to chair SBA, provided cues for slow eccentric control onto commode . Sit to stand from commode SBA with FWW and BUE support pushing from arms of chair. Pt ambulated ~20' in room with slow antalgic step to gait, no buckling or LOB. Sit to supine into bed SBA with handrail assist, pt required extra time for LEs into bed. pt was left in bed with call light nearby, ice on R knee, requesting new phone courtesy clerk cord, nursing notified. Gait Assessment Gait Gait Assistance Required: Standby Assistance,1 Person Assist Distance (Feet) 20 Able to Maintain Weight Bearing Status Yes During Gait Assistive Devices Assistive Device Gait Belt,Front Wheeled Walker Orthotic/Prosthetic Devices or Brace: No Gait Deviations General Gait Pattern Antalgic,Decreased Stride Length,Decreased Feet Clearance,Step-to Gait Factors Limiting Gait Function Factors Limiting Gait Function Decreased Activity Tolerance, Decreased Strength,Difficulty Following Directions,Limited Range of Motion,Pain,Poor Balance,Poor Safety Awareness Comments Gait Comments See mobility comments. Stair Climbing Assessment Comments Stair Climbing Comments Did not attempt this session. PT-Balance Assessment Sitting Balance and Reactions Static Sitting Balance Ability Good Dynamic Sitting Balance Ability Good Standing Balance and Reactions Static Standing Balance Ability Fair Dynamic Standing Balance Ability Fair Device Used FWW M5 PT-IP Objective Assessments Start: 09/13/22 12:36 Freq: NEEDED Status: Active Protocol: Document 09/13/22 10:25 AB (Rec: 09/13/22 13:02 AB [id number]) Orientation Orientation/Cognition Level of Alertness Alert Orientation Name,Place,Situation Language Function Ability No Deficits Noted Safety Awareness Decreased Safety Awareness Memory Description Short Term Impaired Gross Range of Motion Lower Extremity ROM Assessment Right Impaired Impairments R knee flexion: ~ 30 deg PROM R knee extension: ~ 15 deg less to 0 c/o increase pain with movement Strength Lower Extremity Strength Assessment Right Impaired Hip 3+/5 Knee 3+/5 Muscle Tone Muscle Tone WNL Yes M6 PT-IP Treatment Start: 09/13/22 12:36 Freq: NEEDED Status: Active Protocol: Document 09/14/22 15:51 TS (Rec: 09/14/22 16:04 TS [id number]) Physical Therapy Treatment Education Education Provided Precautions,Weight Bearing Status,Post-Op Packet,Safety M7 PT-IP Assessment and Plan Start: 07/15/23 12:36 Freq: NEEDED Status: Active Protocol: Document 09/14/22 15:51 TS (Rec: 09/14/22 16:04 TS [id number]) PT Summary Assessment and Plan Potential Rehabilitation Potential Good Summary Impairments Pain,ROM,Strength,Balance, Coordination,Sensation,Tone, Cognition,Bed Mobility, Transfers,Gait,Activity Tolerance Progress Towards Goals Progressing Toward Goals Assessment Summary Pt continues to be SBA for most bed mobility but requird ModA this afternoon for scooting to EOB. She was SBA for sit to stands from bed and commode with FWW, she demonstrates good carryover of sequencing with RLE extended. She ambulated ~20' this afternoon SBA with continued slow antalgic gait, no buckling or LOB noted. PT is recommending SNF vs 22/09 at home. Pt continues to have low activity tolerance and poor balance with gait and would benefit from continued skilled therapy. Goals Bed Mobility Goal Standby Assistance Transfer Goal Standby Assistance,Front Wheeled Walker Gait Goal Standby Assistance,Front Wheel Walker Gait Distance 150 Other Goals up/down 2 steps B rails SBA Days to Meet Goals 10 Frequency of Treatment Frequency Of Treatment Twice a Day Treatment Plan Physical Therapy Treatment Plan Bed Mobility Training,Transfer Training,Gait Training, Therapeutic Exercise,Balance Retraining,Post Op Education, Discharge Planning,Hot or Cold Pack,Neuromuscular Re-ed, Coordination Retraining,Manual Therapy Weight Bearing Status Weight Bearing Status Weight Bear as Tolerated Allowed Weight Bearing Amount (enter % RLE WBAT or #) (%) Recommendations To Nursing Amount of Assist Needed 1 Person Assist Discharge Recommendations PT Discharge Recommendations Home with 22/09 Assist Available,Home vs SNF Equipment Needed for Home Before FWW Discharge Transportation Needs at Discharge Private Vehicle,Wheelchair/ Cabulance
[2022-09-14] MEDS: HYDROMORPHONE 0.5 MG INJ IV (16:35)
[2022-09-14] MEDS: METOPROLOL ER 50 MG TABLET PO (20:36)
[2022-09-14] MEDS: AMIODARONE 200 MG TABLET PO (20:36)
[2022-09-14] MEDS: VERAPAMIL 80 MG TABLET 120 MG PO (20:37)
[2022-09-15] MEDS: OXYCODONE IR 10 MG TABLET PO ×5 (00:56→13:51)
[2022-09-15] MEDS: PANTOPRAZOLE DR 20 MG TABLET PO (07:59)
[2022-09-15] MEDS: hydrOXYzine pamoate 25 MG CAPSULE PO (07:59)
[2022-09-15] MEDS: DOCUSATE 100 MG CAPSULE PO (08:00)
[2022-09-15] MEDS: ASPIRIN EC 81 MG TABLET PO (08:00)
--- NOTE | 2022-09-15 09:35 | PT.IPTN ---
Current Diagnoses Unilateral primary osteoarthritis, right knee (09/13/22) Surgery Performed Operation Date: 09/12/22 11:30 Actual Procedures p Total Knee Arthroplasty(Right) - Aleshia Hargrove MD Physical Therapy Treatment Note M2 PT-IP Current Condition Start: 09/13/22 12:36 Freq: NEEDED Status: Active Protocol: Document 09/13/22 10:25 AB (Rec: 09/13/22 13:02 AB [id number]) Physical Therapy Current Condition Current Condition Evaluation Date 09/13/22 Treatment Diagnosis s/p R TKA; difficulty in walking Onset Date 09/12/22 M3 PT-IP Subjective Start: 09/13/22 12:36 Freq: NEEDED Status: Active Protocol: Document 09/15/22 10:52 TS (Rec: 09/15/22 11:11 TS [id number]) Subjective Physical Therapy Visit Type Type Treatment Note Visit Start Time 09:35 Visit Stop Time 10:20 Total Visit Minutes 45 Number of HAND VIOLIN MAKER Visits 4 Physical Therapy Visit Comments Patient Comments Pt found with OT on EOB, agreeable to PT. Therapy Pain Assessment Pain When Pain Assessed During Mobility Pain Present Pain Present Pain Reported M4 PT-IP Mobility and Gait Start: 09/13/22 12:36 Freq: NEEDED Status: Active Protocol: Document 09/15/22 10:52 TS (Rec: 09/15/22 11:11 TS [id number]) PT-Bed Mobility Assessment Scooting Scooting to Edge of Bed Standby Assistance PT-Transfer Assessment Sit to and From Stand Sit to and from Stand Standby Assistance,1 Person Assistance,Use of Upper Extremities Equipment Transfer Assistive Device Gait Belt,Front Wheeled Walker Orthotic/Prosthetic Devices or Brace: No Comments Mobility Comments Pt found sitting EOB, BP taken in sitting 132/84. Sit to stand x1 SBA with FWW, pt slow to stand for guarding of pain but demonstrates good carryover of sequencing. She ambulated ~50' SBA with slow/ cautious jess to gait, very guarded with pain in RLE, has no bucking or LOB. Pt sat in w /c with good eccentric control , required some cueing for FWW management. Pt was taken to stairs in w/c down glass. Sit to stand from s/c SBA with LUE on FWW and RUE pushing from arm of chair. She performed stairs x3 with step to step CGA ascending and with BUE support on handrails. She is slow to step and having difficulty weight bearing on RLE when descending stairs, required Merry for balance. Pt was brought back to room in w/ c, was left in bedside chair with call light nearby, RN notified. Gait Assessment Gait Gait Assistance Required: Standby Assistance,1 Person Assist Distance (Feet) 50 Able to Maintain Weight Bearing Status Yes During Gait Assistive Devices Assistive Device Gait Belt,Front Wheeled Walker Orthotic/Prosthetic Devices or Brace: No Gait Deviations General Gait Pattern Antalgic,Decreased Stride Length,Decreased Feet Clearance,Step-to Gait Factors Limiting Gait Function Factors Limiting Gait Function Decreased Activity Tolerance, Decreased Strength,Difficulty Following Directions,Limited Range of Motion,Pain,Poor Balance,Poor Safety Awareness Comments Gait Comments See mobility comments. Stair Climbing Assessment Evaluation Level of Assist On Stairs Standby Assistance Devices Stair Climbing Assistive Devices Left Railing,Right Railing Technique/Endurance Stair Climbing Direction Ascend and Descend Stair Climbing Technique Step to Step Number of Steps Climbed 3 Comments Stair Climbing Comments See mobility comments. PT-Balance Assessment Sitting Balance and Reactions Static Sitting Balance Ability Good Dynamic Sitting Balance Ability Good Standing Balance and Reactions Static Standing Balance Ability Fair Dynamic Standing Balance Ability Fair Device Used FWW M5 PT-IP Objective Assessments Start: 09/13/22 12:36 Freq: NEEDED Status: Active Protocol: Document 09/13/22 10:25 AB (Rec: 09/13/22 13:02 AB [id number]) Orientation Orientation/Cognition Level of Alertness Alert Orientation Name,Place,Situation Language Function Ability No Deficits Noted Safety Awareness Decreased Safety Awareness Memory Description Short Term Impaired Gross Range of Motion Lower Extremity ROM Assessment Right Impaired Impairments R knee flexion: ~ 30 deg PROM R knee extension: ~ 15 deg less to 0 c/o increase pain with movement Strength Lower Extremity Strength Assessment Right Impaired Hip 3+/5 Knee 3+/5 Muscle Tone Muscle Tone WNL Yes M6 PT-IP Treatment Start: 09/13/22 12:36 Freq: NEEDED Status: Active Protocol: Document 09/15/22 10:52 TS (Rec: 09/15/22 11:11 TS [id number]) Physical Therapy Treatment Education Education Provided Precautions,Weight Bearing Status,Post-Op Packet,Safety M7 PT-IP Assessment and Plan Start: 09/13/22 12:36 Freq: NEEDED Status: Active Protocol: Document 09/15/22 10:52 TS (Rec: 09/15/22 11:11 TS [id number]) PT Summary Assessment and Plan Potential Rehabilitation Potential Good Summary Impairments Pain,ROM,Strength,Balance, Coordination,Sensation,Tone, Cognition,Bed Mobility, Transfers,Gait,Activity Tolerance Progress Towards Goals Progressing Toward Goals Assessment Summary Pt not on o2 when therapist entered room this morning, 93% on RA, BP unremarkable. She is making some progress this morning with stairs x3. She required BUE handrail assist and cueing for step sequencing . Descending stairs she required Merry due to difficulty weight bearing on RLE. She continues to ambulate with a very slow/cautious step to gait with FWW ~50' SBA , has no buckling or LOB. PT is recommending home with assist. Pt states she has someone to help her during the day and can call others for help is she needs. She is determined to go home today and does not want to go to SNF . Will need FWW before d/c home. Goals Bed Mobility Goal Standby Assistance Transfer Goal Standby Assistance,Front Wheeled Walker Gait Goal Standby Assistance,Front Wheel Walker Gait Distance 150 Other Goals up/down 2 steps B rails SBA Days to Meet Goals 10 Frequency of Treatment Frequency Of Treatment Twice a Day Treatment Plan Physical Therapy Treatment Plan Bed Mobility Training,Transfer Training,Gait Training, Therapeutic Exercise,Balance Retraining,Post Op Education, Discharge Planning,Hot or Cold Pack,Neuromuscular Re-ed, Coordination Retraining,Manual Therapy Weight Bearing Status Weight Bearing Status Weight Bear as Tolerated Allowed Weight Bearing Amount (enter % RLE WBAT or #) (%) Recommendations To Nursing Amount of Assist Needed 1 Person Assist Discharge Recommendations PT Discharge Recommendations Home with Assistance Equipment Needed for Home Before FWW Discharge Transportation Needs at Discharge Private Vehicle,Wheelchair/ Cabulance
--- NOTE | 2022-09-15 09:40 | OT.IP.EVAL ---
Current Diagnoses Unilateral primary osteoarthritis, right knee (09/13/22) Surgery Performed Operation Date: 09/12/22 11:30 Actual Procedures p Total Knee Arthroplasty(Right) - Aleshia Hargrove MD Past Medical History (Last Reviewed 09/13/22 @ 10:19 by Aleshia Hargrove MD) Edema HTN (hypertension) PAF (paroxysmal atrial fibrillation) (~2008) Sepsis (11/30/16) TIA (transient ischemic attack) (03/04/15) Upper GI bleed (02/25/14) Surgical History (Last Reviewed 09/13/22 @ 10:19 by Aleshia Hargrove MD) History of arthroscopy of right knee (2010) History of fusion of lumbar spine (03/2014) History of orthopedic surgery 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) History of surgical procedure (07/2016) Hx of laminectomy (1979) Hx of repair of right rotator cuff (2006) Occupational Therapy Inpatient Evaluation/Re-Eval M1 PT/OT-IP Prior Functional Status Start: 09/15/22 10:57 Freq: NEEDED Status: Active Protocol: Document 09/15/22 10:35 [facility] (Rec: 09/15/22 11:11 [facility] [id number]) Medical Review Prior Functional Status Medical History Reviewed Yes Communication able to make needs known Mobility and Gait pt stated that she is independent with all mobilities and ambulation without AD Activities of Daily Living and IADL's Able to do ADl and IADL needs but had pain. Social History Household Members other Living Arrangements House Number of Floors (Floors) One Floor Number of Stairs To Enter/Railing? 2 steps B rails to enter the house Home Environment Standard Height Toilet,Tub/ Shower Home Equipment Four Wheel Walker,Hand Held Shower,Hospital Bed,Grab Bars Near Toilet,Grab Bars In Shower Additional Social History Comment pt stated that there is a young male that lives with her and may be able to assist her but he works; may have friends that can come in to assist her if needed but no consistent person that can stay and assist her at home pt stated that she will not go on showers for now but will do bed baths pt stated that she rented a hospital bed with B rails M2 OT-IP Current Condition Start: 09/15/22 10:57 Freq: Status: Active Protocol: Document 09/15/22 10:35 [facility] (Rec: 09/15/22 11:11 [facility] [id number]) Occupational Therapy Current Condition Current Condition Evaluation Date 09/15/22 Treatment Diagnosis S/p R TKA Diagnosis Onset Date 09/13/22 M3 OT- IP Subjective and Pain Start: 09/15/22 10:57 Freq: Status: Active Protocol: Document 09/15/22 10:35 [facility] (Rec: 09/15/22 11:11 [facility] [id number]) OT- Subjective Occupational Therapy Visit Type Type Initial Evaluation Visit Start Time 09:05 Visit Stop Time 09:43 Total Visit Minutes 38 Occupational Therapy Visit Comments Patient Comments Pt agreed to get up. OT Pain Assessment Pain When Pain Assessed At Rest Pain Present Pain Present Pain Reported Location right knee Intensity 5 Scale Used Numeric (0 - 10) M4 OT- IP ADL's Start: 09/15/22 10:57 Freq: Status: Active Protocol: Document 09/15/22 10:35 [facility] (Rec: 09/15/22 11:11 [facility] [id number]) OT [id number] General Evaluation Self-Feeding Ability Independent OT ADL-Grooming General Evaluation Grooming Ability Independent OT ADL-Oral Care Comments Oral Care Comments not performed OT ADL-Dressing General Eval Lower Body Dressing Ability Maximum Assistance Comments OT Dressing Comments Educated for use of community recreation programmer and assist as pt having difficulty to lift her RLE at this time. Pt insistent that she will be fine and wear loose clothing. OT ADL-Toileting Comments OT Toileting Comments Pt not having to go at this time. Suggested pt get a BSC at night to use. Pt also planning on wearing briefs/ pads at night. OT ADL-Bathing Comments OT Bathing Comments Pt states to just sponge off for now. M5 OT- IP IADL's Start: 09/15/22 10:57 Freq: Status: Active Protocol: Document 09/15/22 10:35 [facility] (Rec: 09/15/22 11:11 [facility] [id number]) OT-Instrumental Activities of Daily Living Deficits IADL Deficits Identified Deficits Home Safety Awareness Awareness of Need for Assistance at Home Good Awareness Ability to Problem Solve Emergency Able to Problem Solve Situations M6 OT- IP Functional Cognition Start: 09/15/22 10:57 Freq: Status: Active Protocol: Document 09/15/22 10:35 [facility] (Rec: 09/15/22 11:11 [facility] [id number]) Cognitive Factors Limiting Selfcare Function Cognitive Ability Level of Alertness Alert Patient Orientation Name,Place,Situation Ability to Follow Commands Able to Follow One Step Commands Cognitive Comments Cognitive Assessment Comments Pt able to follow commands for ADl and mobility needs. Pt just needing occasional vc to not keep the FWW so close to her.. M7 OT- IP Mobility and Balance Start: 09/15/22 10:57 Freq: Status: Active Protocol: Document 09/15/22 10:35 [facility] (Rec: 09/15/22 11:11 [facility] [id number]) OT- Bed Mobility Assessment Supine to Sit Supine to Sit Assist Standby Assistance OT-Transfer Assessment Sit to and From Stand Sit to and from Stand Standby Assistance Transfers Transfer Ability Standby Assistance Technique Transfer Destination Bed,Wheelchair Transfer Technique Stand Step Pivot Devices Transfer Assistive Devices Gait Belt,Front Wheeled Walker Comments Mobility Comments Pt SBA and use of gait belt on her RLE to help get it to the edge of the bed. SBA to stand to FWW. Pt heavy use of BUE on the FWW. OT- Balance Assessment Sitting Balance and Reactions Static Sitting Balance Ability Good Dynamic Sitting Balance Ability Good Standing Balance and Reactions Static Standing Balance Ability Fair Dynamic Standing Balance Ability Fair M8 OT- IP Objective Assessments Start: 09/15/22 10:57 Freq: Status: Active Protocol: Document 09/15/22 10:35 [facility] (Rec: 09/15/22 11:11 [facility] [id number]) OT Strength Upper Extremity Strength Assessment Within Functional Limits M9 OT- IP Assessment and Plan Start: 09/15/22 10:57 Freq: Status: Active Protocol: Document 09/15/22 10:35 [facility] (Rec: 09/15/22 11:11 [facility] [id number]) OT Summary Assessment and Plan Potential Rehabilitation Potential Good Analytic Complexity at Evaluation Low Summary OT Impairments Pain,Functional Mobility, Dressing,Toileting,Bathing, Toilet Transfers,Shower Transfers,Activity Tolerance Progress Towards Goals Progressing Toward Goals Assessment Summary Pt low complexity and main barriers are step, decreased activity tolerance, and pain. Pt states to have young man that stays with her to assist during the day and friends come help as needed during the night. Pt has a hospital bed at home. Also suggested to get a BSC. Pt insistent on going home and therefore will benefit from home health. Goals Grooming Goal Independent Dressing Goal Independent Toileting Goal Independent Bathing Goal Independent Toilet Transfer Goal Independent Shower Transfer Goal Independent Days to Meet Goals 10 Frequency of Treatment Frequency Of Treatment Once a Day Treatment Plan OT Treatment Plan ADL Training,Functional Mobility,Patient/Family Education,Discharge Planning Discharge Recommendations OT Discharge Recommendations Home with Assistance,Home Health Home Equipment Needs FWW, BSC Transportation Needs at Discharge Private Vehicle
[2022-09-15 10:00] VITALS: BP 132/84; PULSE 79; RESP 19; O2SAT 97
--- NOTE | 2022-09-15 14:14 | P.DS_ITS ---
History of Present Illness History of Present Illness Chief complaint: R TKA *OPB* Narrative: Patient has seen multiple times this morning, before and after physical therapy. Patient is now sitting up in chair, denies complaint. Denies fever, chills, numbness and tingling to the distal lower extremities. Patient reports that she is progressing and feeling better every day. Discharge Providers Provider Date of admission: 09/13/22 15:33 Discharge Date: 09/15/22 Primary care physician: Dae Trujillo MD Discharge provider: Kaya Flynn PA-C Summary Hospital Course Discharge Diagnosis: Status post right TKA Hospital Course: Operative Date/Time/Diagnoses Date of procedure: 09/12/22 Time of procedure: 12:00 Pre-op diagnosis: Right knee arthritis M17.11 BMI 34 Post-op diagnosis: same Procedure & Clinicians Procedure: Total knee arthroplasty, right CPT code 57820 Same procedure as scheduled: Yes Indications: The patient is a 77 year old female with end-stage [id number] knee arthritis.? The patient has end-stage, significant varus knee arthritis. They have failed conservative treatment with activity modifications, injections, physical therapy and bracing.? They has been indicated for total knee replacement.? The risks and benefits of the procedure have been discussed with the patient even opportunity to ask questions.? The risks of surgery include but are not limited to infec tion, malunion, nonunion, fracture, loosening, persistence of pain, damage to nerves and blood vessels, need for additional procedures, DVT, PE, cardiopulmonary complications and .? The patient expressed a thorough understanding of the risks and benefits of surgery and has elected to proceed.? Consent was signed in the office. During the operation the services of physician surgical sales representative were medically indicated and necessary to provide the exposure of the operative site for the surgical procedure and to maintain the limb in a proper position to carry out the procedure safely and efficiently.? Without a qualified product development assistant being present this would extend the operative procedure and would have made the procedure more technically difficult to perform.? The surgical sales representative was me dically necessary for the proper positioning, retraction and manipulation of the limb, proper exposure, and manipulation of the tissue for implantation implants and closure. Surgeon: Aleshia Hargrove [employer] Lab Technician: Kaya Flynn Anesthesia Type: General and Local Operative Notes Findings: Kellgren Kodi grade 4 varus knee arthritis full-thickness cartilage loss medial and patellofemoral compartments medial and lateral meniscal tearing Closure Type: primary Specimen(s): none sent Prosthetic devices, grafts, tissues, transplants, or devices: Silva and nephew jourserena 2 BCS total knee arthroplasty Femur cobalt chromium size 4 right Tibia size 3 right Poly 11 mm Patella 35 mm x 7.5, round Estimated Blood Loss (mL): 50 Blood products transfused: none Status at Discharge Cognitive/behavioral status at discharge: oriented Functional status at discharge: uses cane/walker Overall status at discharge: patient is progressing back to baseline Exam Vital Signs (past 8 hours): - 09/15/22 10:00 Pulse Rate 79 Respiratory Rate 19 Blood Pressure 132/84 Pulse Oximetry 97 Oxygen Flow Rate 0 Fraction of Inspired Oxygen 28 Oxygen Delivery Method Nasal Cannula Oxygen Flow Rate 0 Narrative Exam Narrative: 77-year-old female. Awake, alert, and oriented. Intraoperative right knee A quacel bandage clean, dry, and intact. Hardeep bandage has been removed. Knee with generalized swelling, mild warmth no observable bruising. Gross strength and sensation intact to bilateral lower extremities. Bilateral calves soft, compressible, nontender with no palpable cords or masses. 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 Patient has a roommate at home who is available to help her. Continue 81 mg aspirin for DVT prophylaxis, patient has tolerated this in the hospital and it is not contraindicated with previous gastric ulcer or steven en y procedure. Continue multimodal pain regimen as needed. Prescriptions were sent to patient's [facility]. Follow up as scheduled with orthopedics at 2 and 6 weeks after surgery. Discharge Plan Discharge Plan Patient Disposition: Home Discharge orders & Medications Prescriptions: New aspirin 81 mg tablet,delayed release (DR/EC) 81 mg PO BID Qty: 60 0RF ondansetron 4 mg tablet,disintegrating 4 mg PO Q8H PRN (Reason: nausea and vomiting) Qty: 7 1RF docusate sodium [Colace] 100 mg capsule 100 mg PO BID Qty: 30 0RF oxycodone 5 mg tablet 5 mg PO Q4H PRN (Reason: pain) Qty: 42 0RF Rx Instructions: postop exempt Continued amiodarone 200 mg Tablet 200 mg PO BEDTIME metoprolol succinate 50 mg Tablet Extended Release 24 Hr 50 mg PO BEDTIME hydrocodone-acetaminophen 5-325 mg Tablet 0.5 tab PO DAILY PRN (Reason: Pain) verapamil 120 mg Tablet 120 mg PO BEDTIME zolpidem 5 mg Tablet 5 mg PO BEDTIME omeprazole 20 mg Tablet,Delayed Release (Dr/Ec) 20 mg PO BID Follow up/Referrals: Dae Trujillo MD [Primary Care Provider] - Diet/Activity/Treatments Diet: Diet as Tolerated Skin/Wound/Dressing Care Report to your healthcare provider any signs of infection, such as:: chills, fever, night sweats, increased pain, unusual drainage and unusual redness Other wound treatment: Medications: -Aspirin 81mg twice daily x6 weeks to prevent blood clots. -OTC Tylenol 500 mg 1 tablet every 4 hours as needed for pain/fever. Max 6 tablets per day. (take scheduled every 4-6 hours for the first few days to week after schedule to help stay on top of your pain) -Ibuprofen 400 mg 1 tablet every 4 hours as needed for pain/inflammation. Max 2,400 mg per day. (take scheduled for the first few days-week after surgery to stay on top of your pain) -Oxycodone 5 mg take 1-2 tablets (5-10mg) every 4 hours as needed for moderate- severe pain (narcotic pain medication). (maximum dose for very severe pain would be 3 pills (15mg) every 3 hours) -Vistaril (hydroxyine) 25mg 1 tab every 4 hours as needed for spasms/pain/nausea. OR Ondansetron (zofran) 4mg - 1 tab every 8 hours as needed for nausea -As needed medications: -Ducolax and /or MiraLax as needed for constipation from narcotic pain medications. -Pepcid AC as needed for stomach upset (usually from aspirin or ibuprofen). Dressing/Wound care: -Remove the Hardeep wrap 48 hours after surgery. -Keep Aquacell dressing in place until postoperative follow-up office visit. -Okay to shower. Keep wound out of direct water stream. No soaking or submerging until all the scabs fall off (approximately 4-6 weeks). -No lotions, ointments, or scar creams directly to the incision until the wound is healed (4-6 weeks), -Please call the office if dressing becomes wet, soiled, or saturated. Activities: -Weight-bearing as tolerated. Use front wheeled walker, and progress to cane when safe. -Continue with home exercises as directed by your physical therapist. (work on getting your leg. knee fully straight and bending knee as well- motion after knee replacement is very important) -should have outpatient Physical Therapy visits set up to start within 1 week after surgery -Elevate ?toes above the nose if you have significant swelling in your lower leg. (A wedge pillow is easiest.) -Ice your incision as needed for pain/inflammation/swelling. Protect your skin with a folded pillowcase. -Incentive Spirometer (breathing device from [facility]): 5-10xs every hour while awake for the first 1-2 weeks. Follow-up: -Follow-up with your surgeon or PA in the office in 10-14 days after surgery. -Follow-up with your surgeon 6 weeks postoperatively. Contact the office if you have any of the following: ? Painful swelling or numbness ? Unrelenting pain ? Fever (over 101?- it is normal to have a low grade fever for the first day or two following surgery) or chills ? Redness around the incisions ? Color changes ? Continuous bleeding or drainage from the incision (a small amount is expected) ? Excessive nausea or vomiting ? Difficulty breathing If you have an emergency that requires immediate attention such as shortness of breath or chest pain, call 911 or proceed to the nearest emergency room. [facility]: [phone] Pain Medications: It is the policy of [facility] that narcotic medications will only be refilled during office hours. Additionally, due to the alarming rate of narcotic pain medication abuse/dependence, it has become necessary for physician practices to closely manage patient use of prescription narcotic pain relievers, such as Vicodin (Joiner), Percocet, and Oxycodone products. Narcotic pain management in the postoperative period may not exceed 6 weeks. If narcotic pain management is required beyond 90 days, then a referral to a Chronic Pain Specialist will be made. If a request for a medication prescription of refill has been made, the physician must review your chart prior to authorizing the request. Please be patient with office staff. If you call during patient hours, your call may not be returned until the end of the day. Visit Report/Discharge Packet Instructions: DI for Knee Replacement Stand Alone Forms: Patient Portal/API, Surgery Discharge Discharge Data Primary Care Provider: Dae Trujillo VTE Deep Vein Thrombosis/Pulmonary Embolism Present on Admission: No
--- NOTE | 2022-09-15 14:49 | CM.DPC ---
DCP Continued: MASTER COASTWISE YACHT reviewed EMR. MASTER COASTWISE YACHT spoke with PT, who reports patient okay to d/c home with assistance. Per SANDRA Flynn, patient is doing much better today and is cleared to d/c home with assistance. MASTER COASTWISE YACHT entered room and introduced self and role. Patient was resting in bed and appeared A/Ox4. Patient continues to deny wanting a SNF or HH, stating she has friends that can help her through her recovery. Patient reports she has people that can transport her home she would just need a time to tell her friend. Plan: patient will d/c home today with friend and transport in POV. CM team will continue to follow as needed. TATI Antonio
--- NOTE | 2022-09-15 15:35 | PC.NURSE ---
Discharge Note Patient A&O, VSS, RA, no complaints of pain/discomfort. Patient agreeable to discharge plan. Discharge packet reviewed with patient. All questions/concerns addressed. PIV discontinued. Patient able to dress self with assistance. Patient assisted in packing all belongings. 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 Patient taken down via wheelchair to POV.
== END 2022-09-15 14:30 | disposition home or self-care (01) | DRG 470 ==
LOC: OR 09-15 06:41 → AC 09-15 06:41
PROVIDERS: Admitting Provider Orthopaedic Surgery Foot and Ankle Surgery; Family Provider Family Medicine; PCP Family Medicine; Referring Provider Orthopaedic Surgery Foot and Ankle Surgery; Visit Provider Orthopaedic Surgery Foot and Ankle Surgery
PROC: 0SRC0JZ Replacement of Right Knee Joint with Synthetic Substitute, Open Approach (ICD-10-PCS; CPT 27447; principal; 2022-09-12 11:30)
DX: M17.11 Unilateral primary osteoarthritis, right knee (principal); M23.200 Derangement of unspecified lateral meniscus due to old tear or injury, right knee; M23.203 Derangement of unspecified medial meniscus due to old tear or injury, right knee; I10 Essential (primary) hypertension; Z87.891 Personal history of nicotine dependence
CPT/HCPCS: 36415; 71045; 73560; 85014; 85018; 94762; 97116; 97162; 97165; 97530; 97535; C1776; C9290; J0690; J1100; J1170; J2250; J2274; J2405; J2704; J3010

== ENCOUNTER → 2023-07-13 13:32 | Outpatient (CLI) | payer MEDICARE, SELFPAY ==
[2022-09-12 15:58] VITALS: BMI 34.5
--- NOTE | 2023-07-13 13:36 | DI.CT.S_ITS ---
PROCEDURE: CT UE RT WO CON INDICATIONS: Primary osteoarthritis, right shoulder TECHNIQUE: Noncontrast 0.75 mm thick sections acquired from the acromioclavicular joint to the inferior scapula, with coronal and sagittal reformatting. COMPARISON: None. FINDINGS: Image quality: Excellent. Bones: Severe lower left cervical facet arthropathy, incompletely evaluated. Mild degenerate changes of the right acromioclavicular joint. Joint space of the glenohumeral joint is well maintained. Chondrocalcinosis of the right glenohumeral joint, representing CPPD arthropathy. No acute fracture or dislocation of the right shoulder. Suture anchor is seen in the at the lesser tuberosity, consistent with prior rotator cuff repair. No right glenoid retroversion. No acute fracture or dislocation of the right shoulder. The visualized right ribs are unremarkable. Soft tissues: Severe calcification at the right common carotid bifurcation. No right axillary lymphadenopathy. 4 mm pulmonary nodule in the right upper lobe (series 3, image 127). 4.0 cm ascending thoracic aortic aneurysm. Mild calcification of the aortic arch. No significant glenohumeral effusion. No significant fatty atrophy of the rotator cuff musculature. IMPRESSION: 1. Mild degenerative changes of the right acromioclavicular joint. 2. 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 No significant degenerative changes of the right glenohumeral joint. 3. Status post rotator cuff repair. No significant atrophy of the rotator cuff musculature. 4. 4 mm pulmonary nodule in the right upper lobe. Recommend optional CT at 12 months if patient is high risk. 5. 4.0 cm ascending thoracic aortic aneurysm. Dictated by: Erin Albert M.D. on 07/13/2023 at 14:53 Approved by: Erin Albert M.D. on 07/13/2023 at 15:03
== END ==
LOC: CT 13:34
PROVIDERS: Family Provider Family Medicine; PCP Family Medicine; Referring Provider Orthopaedic Surgery; Visit Provider Orthopaedic Surgery
DX: M19.011 Primary osteoarthritis, right shoulder (principal); M11.811 Other specified crystal arthropathies, right shoulder; I71.21 Aneurysm of the ascending aorta, without rupture; R91.1 Solitary pulmonary nodule; Z98.890 Other specified postprocedural states
CPT/HCPCS: 73200

== ENCOUNTER 2023-08-20 10:26 | Day surgery (SDC) | payer MEDICARE, SELFPAY ==
[2022-09-12 15:58] VITALS: BMI 34.5
[2023-08-18 10:33] VITALS: BMI 32.1
[2023-08-20] VITALS (9 sets, daily range): BP systolic 129–175; BP diastolic 72–102; PULSE 56–89; RESP 12–18; TEMP 36.3–36.6; O2SAT 90–98; BMI 32.1
--- NOTE | 2023-08-20 | DI.RAD.S_ITS ---
PROCEDURE: XR SHOULDER RT 1V INDICATIONS: POST OP TOTAL RT SHLDR TECHNIQUE: 1 views of the shoulder were acquired. COMPARISON: None. FINDINGS: Bones: Patient is status post reverse right shoulder arthroplasty. Shoulder alignment is anatomic. No acute fracture or dislocation. Soft tissues: Postsurgical changes are seen in right shoulder soft tissue. IMPRESSION: Postop changes from right shoulder reverse arthroplasty with anatomic shoulder alignment. Dictated by: Flavio Garcia M.D. on 08/20/2023 at 17:14 Approved by: Flavio Garcia M.D. on 08/20/2023 at 17:16
[2023-08-20] MEDS: LACTATED RINGERS 1,000 ML 42 ML IV (11:30)
[2023-08-20] MEDS: ACETAMINOPHEN 325 MG TABLET 975 MG PO (11:37)
--- NOTE | 2023-08-20 12:17 | SUR.OPER ---
Beach chair with Skytron shoulder positioner. Lower body on padded OR bed. Head in foam padded head cradle, secured with straps. Non-operative arm secured <90 degrees abduction. Pillow under knees. Safety belt at thigh. Cloth tape over blanket over lower legs.
--- NOTE | 2023-08-20 12:24 | PM.PREOP ---
Pre-operative Note Interval Note History & Physical reviewed/Exam performed by Physician: Yes Changes to H&P: No
[2023-08-20] MEDS: CEFAZOLIN 2 GM/100 ML PREMIX 100 ML IV (13:26)
[2023-08-20] MEDS: TRANEXAMIC ACID 1,000 MG VIAL 1000 MG INJ (13:30)
[2023-08-20] MEDS: BUPIVACAINE 0.25% (PF) 30 ML, EPINEPHrine 0.15 MG INJ (13:48)
--- NOTE | 2023-08-20 14:36 | P.OP_ITS ---
Operative Date/Time/Diagnoses Date of procedure: 08/20/23 Time of procedure: 14:36 Pre-op diagnosis: Right glenohumeral arthritis Post-op diagnosis: same Procedure & Clinicians Procedure: Right reverse total shoulder arthroplasty Same procedure as scheduled: Yes Indications: Indications: This is a 78-year-old female who has rotator cuff arthropathy. Symptoms have been present for years, insidious onset. Patient has failed a reasonable attempt at conservative therapy. After extensive discussion in clinic, they wished to go forward with surgery. Risks and benefits were described including the risk of infection, bleeding, damage to internal structures including nerves. We also discussed the risk of failure of surgery and the need for revision surgery as well as the risk of anesthesia. The patient expressed understanding with these risks and wished to go forward with surgery. Surgeon: Robert Rivera Vocational Director: Madai Lopez Anesthesia Type: General Operative Notes Findings: Findings: Osteoarthritis of the glenoid and humeral head as well as a defient rotator cuff as noted on preoperative imaging and under direct visualization Closure Type: primary Specimen(s): none sent Prosthetic devices, grafts, tissues, transplants, or devices: Tornier implants Base plate: standard 25 mm, +3 mm offset Glenosphere: Standard 36 mm Stem: Perform 3 Poly: 0, 10 degree Estimated Blood Loss (mL): 100 Blood products transfused: none Procedure in detail: Patient was seen in the preoperative holding unit. The correct right shoulder was identified and marked with my initials. Again we discussed the risks and benefits of surgery and they wished to go forward with surgery. The patient was brought back to the operating room and placed supine on the operating table. Smooth endotracheal intubation was performed by anesthesia. All prominences were padded and they were placed into the beach chair position. Intravenous antibiotics were given. The right shoulder was then prepped with the standard sterile preparation and draping. A time-out was then performed in my initials were again identified on the correct shoulder. 1 g of IV tranexamic acid was given. A standard deltopectoral incision was made. Skin flaps were made. The cephalic vein was identified and retracted laterally. This was protected throughout the remainder of the case. Sharp dissection was made along the deltoid, subacromial and subcoracoid space to release adhesions. The conjoined tendon was identified and the axillary nerve was palpated and continuous using the tug test. It was protected throughout the remainder of the case. A brown retractor was placed underneath the deltoid muscle and a darach retractor underneath the conjoint tendon. The subscapularis muscle was ntoed to be intact. The anterior circumflex artery and associated veins on the lower border of the subscapularis were identified and tied off using 0-Vicryl. The biceps tendon was identified in the bicipital groove. This was released from its sheath, and taken from its origin on the glenoid and tied into the pectoralis tendon for a solid tenodesis. We then began a subscapularis peel. The subscapularis was tagged with an Ethibond suture. A 360 degree circumferential release of the subscapularis was performed with protection of the axillary nerve. The coracohumeral ligament was released at the base of the coracoid. The shoulder was then dislocated. Osteophytes were removed using combination of rongeur and osteotome. The rotator cuff was noted to be insufficient. An intramedullary guide was used set at version of 20?. Using an oscillating saw a conservative humeral head cut was made. Impaction reamers were reamed up to a size 3 stem with a built-in angle 135?. A neck protector was placed. Attention was then turned to the glenoid. After retracting the humeral head posteriorly a circumferential release was performed of the capsule with protection of the axillary nerve. The labrum was then released starting at the biceps anchor and going around the rim a small amount of triceps was released from the inferior glenoid. A center guide pin was then placed using the guide, followed by Reamer. After adequate cartilage was removed the boss was reamed and the centeral hole was drilled and measured. The base plate was then implanted and screwed into place. The peripheral screws were then sequentially drilled, measured, and placed. A 36 standard glenosphere was then selected and screwed into place onto the base plate. Turning back to the humerus, the humeral head was delivered and trialed with a 0, 10 degree polyethylene. The arm was taken through range of motion and this was felt to be stable. The trial was then removed and a dilute Betadine wash was then performed with 1 L of sterile saline. Before placing the final implant, drill holes were made in the bicipital groove for the subscapularis repair, and sutures were passed through the drill holes. The final stem was then impacted into the humerus. The shoulder was then reduced and again brought through range of motion and was felt to be stable. The subscapularis was then repaired using a modified racking hitch with nice loupes. The deltopectoral interval was then closed with #2 Ethibond. The skin was closed with 2-0 vicryl and 3-0 Monocryl followed by Aquacel dressing. Patient was awoken from anesthesia and brought back to the postoperative recovery unit without issue. They were placed into a sling. Assisting participation: This operation could not have been safely performed (without compromising the technical results or length of the procedure) without the assistance of a skilled regional vice president surgical sales. The regional vice president surgical sales was medically necessary for proper positioning, retraction and manipulation of instruments, proper exposure, graft prep, and manipulation of tissue. Complications: none Post-operative Condition: stable Disposition: PACU Plan for aftercare: Postoperative instructions: Sling to remain on for 6 weeks. No external rotation past neutral for 6 weeks. Okay for the sling to come off for shower. Okay to shower over the Aquacel dressing. If any water gets underneath the dressing, remove the dressing. First postoperative visit in 2 weeks.
--- NOTE | 2023-08-20 14:59 | SUR.PREOP ---
Block start time [time out at 1245 needle in @1251] . Monitoring initiated and maintained throughout procedure. Oxygen and medications given per anesthesiologist inst. Patient remained stable throughout procedure, no adverse reactions noted. Block end time [1256 ].
[2023-08-20] MEDS: hydrOXYzine 50 MG/ML INJ 25 MG IM (15:09)
[2023-08-20] MEDS: HYDROMORPHONE 1 MG INJ IV ×2 (15:14→15:31)
[2023-08-20] MEDS: OXYCODONE IR 5 MG TABLET PO (15:42)
== END 2023-08-20 16:31 | disposition home or self-care (01) ==
PROVIDERS: Family Provider Family Medicine; PCP Family Medicine; Referring Provider Orthopaedic Surgery Foot and Ankle Surgery; Visit Provider Orthopaedic Surgery
PROC: (CPT 23472; principal; 2023-08-20 12:45)
DX: M19.011 Primary osteoarthritis, right shoulder (principal)
CPT/HCPCS: 23472; 64450; 73020; C1776; J0171; J0690; J1100; J1170; J2250; J2405; J2704; J3010; J3410